=== PATIENT | female | born 1975 | race Caucasian/White ===

== ENCOUNTER 2024-03-09 15:09 | Emergency (ER) | payer MEDICAID, SELFPAY ==
[2024-03-09 15:24] VITALS: BP 128/82; PULSE 95; RESP 18; TEMP 36.9; O2SAT 98; BMI 29.0
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
== END 2024-03-09 15:34 | disposition home or self-care (01) ==
LOC: SERX 15:33
PROVIDERS: Emergency Provider Emergency Medicine; PCP Family Medicine
DX: Z91.018 Allergy to other foods (principal)
CPT/HCPCS: 99281

== ENCOUNTER → 2024-05-15 | Outpatient (CLI) | payer OTHER, MEDICAID, SELFPAY ==
--- NOTE | 2024-05-15 15:33 | XR_ITS ---
Examination: Foot, right, 3 views Technique: AP, oblique, lateral views foot, 3 views Date and time of exam: May 07, 2024 1442 hrs. Indications: Right foot pain months Findings: Mild osteopenia Mild narrowing first metatarsophalangeal joint Old deformity at the base of the proximal phalanx fifth digit No acute fracture Minute plantar posterior bony calcaneal spurs Impression: Mild narrowing first metatarsophalangeal joint Minute plantar posterior bony calcaneal spurs
--- NOTE | 2024-05-15 15:33 | XR_ITS ---
EXAMINATION: Ankle, right 3 views . Technique: Ankle AP, oblique, lateral 3 views Date and time of exam: May 15, 2024 1452 hrs. Indications: Hepatocellular ankle pain months Findings: Mild narrowing tibiotalar joint No fracture Minute plantar posterior bony calcaneal spur Impression: Mild narrowing tibiotalar joint Minute plantar posterior bony calcaneal spurs
== END | disposition home or self-care (01) ==
PROVIDERS: PCP Registered Nurse; Referring Provider Registered Nurse; Visit Provider Registered Nurse
DX: M77.31 Calcaneal spur, right foot (principal); M25.871 Other specified joint disorders, right ankle and foot
CPT/HCPCS: 73610; 73630

== ENCOUNTER → 2024-06-23 | Outpatient (CLI) | payer OTHER, MEDICAID, SELFPAY ==
--- NOTE | 2024-06-23 15:30 | XR_ITS ---
Examination: Thyroid sonography complete Technique: Grayscale sonographic images thyroid lobes are carful analysis Exam date and time: June 23, 2024 1516 hrs. Indications: Choking with eating 2 weeks, throat pain Findings: Right thyroid 3.8 cm No solid nodules Left thyroid 3.2 cm, lower pole nodule 4 x 5 mm Impression: Small lower pole left thyroid nodule Consider fluoroscopically guided standard esophagram follow-up
== END | disposition home or self-care (01) ==
PROVIDERS: PCP Registered Nurse; Referring Provider Registered Nurse; Visit Provider Registered Nurse
DX: E04.1 Nontoxic single thyroid nodule (principal)
CPT/HCPCS: 76536

== ENCOUNTER → 2024-07-01 | Outpatient (CLI) | payer OTHER, MEDICAID, SELFPAY ==
--- NOTE | 2024-07-01 09:30 | XR_ITS ---
Examination: Esophagram standard Upright PA chest single view Upright soft tissue lateral neck single view Fluoroscopy 17 spot fluoroscopic films of the esophagus Exam date and time: July 01, 2024 0934 hours INDICATIONS: Difficulty swallowing beginning 3 weeks ago. FINDINGS: Upright PA chest normal heart size, lungs are clear Soft tissue lateral neck satisfactory alignment cervical vertebral bodies No cervical fracture No cervical disc narrowing Normal epiglottis Patient swallowed thin barium with 17 spot fluoroscopic films of the esophagus obtained Primary peristaltic esophageal waves Mild intermittent gastroesophageal reflux No constricting esophageal lesion No esophageal ulcerations No stricture at the gastroesophageal junction IMPRESSION: Mild intermittent gastroesophageal reflux No stricture at the gastroesophageal junction Fluoroscopy 0.28 minutes 17 spot fluoroscopic films of the esophagus
== END | disposition home or self-care (01) ==
LOC: CDIM 09:24
PROVIDERS: PCP Family Medicine; Referring Provider Registered Nurse; Visit Provider Registered Nurse
DX: K21.9 Gastro-esophageal reflux disease without esophagitis (principal)
CPT/HCPCS: 74220; A4699

== ENCOUNTER → 2024-08-04 | Outpatient (CLI) | payer BC, MEDICAID, SELFPAY ==
--- NOTE | 2024-08-04 | XR_ITS ---
Examination: Lumbar spine 3 views Technique one AP lateral coned lateral lower lumbar spine 3 views Date and time: August 04, 2024 1205 hours Comparison December 16, 2020 INDICATIONS: Low back pain several years. FINDINGS: Adequate alignment lumbar vertebral bodies No lumbar fracture Moderate disc narrowing L5-S1 No spondylolisthesis IMPRESSION: Moderate degenerative disc disease L5-S1
== END | disposition home or self-care (01) ==
PROVIDERS: PCP Family Medicine; Referring Provider Orthopaedic Surgery; Visit Provider Orthopaedic Surgery
DX: M51.379 Other intervertebral disc degeneration, lumbosacral region without mention of lumbar back pain or lower extremity pain (principal)
CPT/HCPCS: 72100

== ENCOUNTER 2025-02-05 14:40 | Emergency (ER) | payer MEDICAID, SELFPAY ==
[2025-02-05 15:11] VITALS: BP 125/81; PULSE 85; RESP 19; TEMP 36.9; O2SAT 98
--- NOTE | 2025-02-05 15:12 | XR_ITS ---
Examination: CT chest, without intravenous contrast. CT abdomen, without intravenous contrast. CT pelvis, without intravenous contrast. 2-D sagittal and coronal reconstructions. 3-D reconstructions. Date and time of exam: February 05, 2025, 1536 hours INDICATIONS: Shortness of breath upper abdominal pain beginning 2 months ago CTDI vol (mgy) 7.94 DLP (MGycm) 583 Technique: Multiple CT images, 3.0 mm slice thickness, obtained chest, abdomen, pelvis, with the high-resolution 64 slice scanner.. Sagittal and coronal 2-D reconstructions are obtained. 3-D reconstructions Low dose protocols were performed. One or more of the following dose reduction techniques were used; automated exposure control, adjustment of the mA and/or KV according to patient size, use of iterative reconstruction technique. Findings: No thoracic aortic aneurysm dilatation Pulmonary artery segments are not enlarged No pneumonia or pulmonary edema No visualized liver or splenic lesion Absent gallbladder No pancreatic or adrenal mass Bilateral 1 to 4 mm renal calculi, no hydronephrosis or ureteral calculi Small lymph nodes in the pericecal region Normal appendix No bowel obstruction IMPRESSION: No acute process in the chest abdomen or pelvis Bilateral nonobstructing renal calculi
--- NOTE | 2025-02-05 15:16 | EDRME_ITS ---
Rapid Medical Screening Exam E Arrival date/time: 02/05/25 14:40 49-year-old female with no known medical history presents to the emergency room with a chief complaint of right-sided rib tenderness and shortness of breath x 3 days I have greeted and performed a focused initial assessment of this patient. A com prehensive ED assessment and evaluation of the patient, analysis of all test results, and completion of the medical decision making process will be conducted by additional ED providers. Chief Complaint: General Adult/Misc Complain Time Seen by Provider: 02/05/25 15:05 Vital signs: Vital Signs Temperature 98.5 F 02/05/25 15:11 Pulse Rate 85 02/05/25 15:11 Respiratory Rate 19 02/05/25 15:11 Blood Pressure 125/81 02/05/25 15:11 Pulse Oximetry (%) 98 02/05/25 15:11 Oxygen Delivery Method Room Air 02/05/25 15:11 Vital signs reviewed by provider: Yes Exam: Clear bilateral lung sounds. Strong and regular rhythm GCS 15 Clinical Impression: Shortness of breath/pneumonia/
[2025-02-05 15:28] VITALS: BMI 28.8
[2025-02-05 15:48] LABS: Basophils # (Auto) 0.0 Thou/mm3 (0.0-0.2); Basophils % (Auto) 1 % (0-2.5); Eosinophils # (Auto) 0.2 Thou/mm3 (0.0-0.5); Eosinophils % (Auto) 2 % (0-10); Hematocrit 41.9 % (36.0-46.0); Hemoglobin 14.2 g/dL (12.0-16.0); Immature Granulocytes Auto 0.02 Thou/mm3 (0.00-0.00); Lymphocytes # (Auto) 2.2 Thou/mm3 (1.0-4.8); Lymphocytes % (Auto) 31 % (10-50); Mean Corpuscular HGB Conc 33.9 g/dl (31.0-37.0); Mean Corpuscular Hemoglobin 28.5 pg (25.0-35.0); Mean Corpuscular Volume 84 fL (80-100); Monocytes # (Auto) 0.6 Thou/mm3 (0.0-0.8); Monocytes % (Auto) 8 % (0-12); Neutrophils # (Auto) 4.0 Thou/mm3 (1.8-7.7); Neutrophils % (Auto) 58 % (37-80); Nucleated Red Blood Cell # 0.00 Thou/mm3 (0.00-0.00); Nucleated Red Blood Cell % 0 /100 WBC (0); Platelet Count 346 Thou/mm3 (140-440); RDW Standard Deviation 38.5 fL (36.4-46.3); Red Blood Count 4.99 Miln/mm3 (4.00-5.20); White Blood Count 7.0 Thou/mm3 (3.6-11.0)
[2025-02-05 15:52] LABS: Collection Type, Urine Clean Catch
[2025-02-05 16:01] LABS: Bilirubin,Urine Negative (Negative); Blood,Urine Trace (Negative); Clarity,Urine Clear (Clear/Hazy); Color,Urine Lt-Yellow (Lt Yel-Yel); Glucose, Urine Negative (Negative); Ketones,Urine Negative (Negative); Leukocyte Esterase,Urine Negative (Negative); Nitrite,Urine Negative (Negative); PH,Urine 6.0 (5.0-7.0); Protein,Urine Negative (Neg - Trace); RBC,Urine 4 /hpf (0-3); Specific Gravity,Urine 1.020 (1.001-1.035); Squamous Epithelial Cell,Urine 4 /hpf (0-5); Urobilinogen,Urine Negative mg/dL (0.0-1.0); WBC,Urine 1 /hpf (0-5)
[2025-02-05 16:10] LABS: Alanine Aminotransferase 23 U/L (10-49); Albumin, Serum 4.8 gm/dL (3.5-5.0); Albumin/Globulin Ratio 1.9 (1.2-2.2); Alkaline Phosphatase 76 U/L (46-116); Anion Gap 8 (7-16); Aspartate Amino Transferase 26 U/L (0-34); BUN/Creatinine Ratio 13 Ratio (12-20); Bilirubin,Total 0.4 mg/dL (0.3-1.2); Blood Urea Nitrogen 8 mg/dL (9-23); Calcium 9.2 mg/dL (8.3-10.6); Calcium (Corrected) 9.2 mg/dL (8.5-10.1); Carbon Dioxide 28.2 mMol/L (20.0-31.0); Chloride 105 mMol/L (98-107); Creatinine (Component) 0.6 mg/dL (0.6-1.3); Estimated Creatinine Clearance 126.0 mL/min (>60); Globulin 2.5 gm/dL (2.3-3.5); Glucose 91 mg/dL (74-106); Lipase 34 U/L (12-53); Osmolality,Calculated 279 (275-295); Potassium 3.7 mMol/L (3.4-5.1); Sodium 141 mMol/L (136-145); Total Protein 7.3 gm/dL (5.7-8.2); eGFR > 60 See Note
[2025-02-05 16:16] LABS: HCG Qualitative,Urine Negative
--- NOTE | 2025-02-05 16:45 | PRELIM_ITS ---
CT scan of the chest, abdomen, and pelvis without intravenous contrast (axial sections with sagittal and coronal reformats): February 05, 2025 at 1536 hours Clinical History: Shortness of breath, right upper quadrant pain. Comparison: No prior study is available for comparison at the time of interpretation. Findings: There is no focal consolidation/infiltrates or pleural effusion. The thoracic aorta is unremarkable without aneurysm. There is no mediastinal mass or significant lymphadenopathy. There is no pericardial effusion. The trachea and esophagus are unremarkable. The gallbladder is surgically absent. No infla mmatory changes are seen in the gallbladder fossa. The liver, spleen, both adrenals, and pancreas are unremarkable on this non-contrast study. There are non-obstructing bilateral renal calculi, the largest measuring 4 mm in the lower pole of the right kidney. There is no ureteric calculus or hydrourete ronephrosis. There is no bowel obstruction. Small bowel loops are fluid-filled, non-specific. The appendix is within normal limits (on axial image [id number]). A moderate amount of fecal material is seen in the colon. The uterus is surgically absent. There is no adnexal mass. Phleboliths are seen in the pelvis. There is no free fluid or free air. The aorta is unremarkable on this non-contrast study. Osseous structures are unremarkable. Impression: 1. No focal pneumonic consolidation, pleural effusion, or significant lymphadenopathy. 2. Cholecystectomy. 3. Non-obstructing bilateral renal calculi. 4. No bowel obstruction. 5. Other findings are as described above. Report Electronically Signed By: Kylee Nicholson 02/05/2025 4:44:24 PM [EST]
--- NOTE | 2025-02-05 18:40 | EDNOTE_ITS ---
ED Chest Pain RME/HPI General Chief Complaint: General Adult/Misc Complain Stated Complaint: R RIB PAIN Time Seen by Provider: 02/05/25 15:05 Arrival date/time: 02/05/25 14:40 RME / HPI RME / HPI narrative: 02/05/25 14:40 49-year-old female with no known medical history presents to the emergency room with a chief complaint of right-sided rib tenderness and shortness of breath x 3 days I have greeted and performed a focused initial assessment of this patient. A comprehensive ED assessment and evaluation of the patient, analysis of all test results, and completion of the medical decision making process will be conducted by additional ED providers. DR. GUTIERREZ MAIN ED EVALUATION: Patient presents with right lower chest/subcostal pain of several years duration, gradually increasing in intensity with noted pleuritic component. Reports increasing pain with both rotation and flexion of the torso and notes mild shortness of breath. Also reports dyspneic exertion. PMH: Migraine, Sleep Apnea, Kidney Stones, Depression, Anxiety, and Post Traumatic Stress Disorder, IBS PSH: Hysterectomy, Cholecystectomy Allergies: Codeine, Hydromorphone, Lidocaine, Morphine Social: Occasional Alcohol Consumption Exam: Clear bilateral lung sounds. Strong and regular rhythm GCS 15 Impression: Shortness of breath/pneumonia/ Related Data Home Medications ?Medication ?Instructions ?Recorded ?Confirmed sertraline 100 mg tablet (Zoloft) 100 mg PO BID 01/08/22 hydroxyzine HCl 25 mg tablet 25 mg PO TID PRN Anxiety 07/18/18 01/08/22 propranolol 20 mg tablet 20 mg PO .PRN 05/09/2101/08 Previous Rx's ?Medication ?Instructions ?Recorded [id number] 1 cap PO TID PRN matthias n #30 caps 06/02/22 50 mg-300 mg-40 mg capsule (Fioricet) cyclobenzaprine 10 mg tablet 10 mg PO BID 7 days #14 t abs 02/05/25 gabapentin 100 mg capsule 100 mg PO BID 7 days #14 cap s 02/05/25 prednisone 20 mg tablet 40 mg PO QDAY 5 days #10 tab s 02/05/25 Allergies Allergy/AdvReac Type Severity Reaction Status Date / Time codeine Allergy Severe Difficulty Verified 02/05/25 14:42 Breathing hydromorphone Allergy Severe Anaphylaxis Verified 02/05/25 14:42 lidocaine Allergy Severe JERKING,TWI Verified 02/05/25 14:42 TCHING anjali Allergy Severe Swelling Verified 02/05/25 14:42 of Lip/Tongue/Throat morphine Allergy Severe Difficulty Verified 02/05/25 14:42 Breathing papaya Allergy Severe Swelling Verified 02/05/25 14:42 of Lip/Tongue/Throat pineapple Allergy Severe Swelling Verified 02/05/25 14:42 of Lip/Tongue/Throat MACHA Allergy Severe Swelling Uncoded 02/05/25 14:42 of Lip/Tongue/Throat tropical fruit Allergy Severe Swelling Uncoded 02/05/25 14:42 of Lip/Tongue/Throat Review of Systems Review of Systems Systems Reviewed: All systems reviewed, normal except as documented Past Medical History Past Medical History NEUROLOGIC: Positive Migraine RESPIRATORY: Positive Sleep Apnea (NO MEDS) GENITOURINARY: Positive Kidney Stones PSYCHO/SOCIAL: Positive Depression, Anxiety and Post Traumatic Stress Disorder OTHER HISTORY: Positive Hospitalization, Anesthesia Reactions ( DIFFICULTY W AKING UP FROM GENERAL SX ) and Chicken Pox Family History FAMILY HISTORY: Positive Family Cancer Surgical History SURGICAL: Positive Hysterectomy ED Exam Narrative Physical exam: GEN. APPEARANCE: The patient is alert awake oriented X-3 under no distress, lying down comfortably, does not look ill/toxic. Patient has good eye contact. Patient is cooperative. VITALS: All vitals were reviewed and the pulse ox is 98%, which is normal according to my interpretation HEENT: Normocephalic, atraumatic and nontender. Pupils are equal and reactive. Oral mucosa is moist. NECK: Supple, nontender, no meningismus, no JVD. There is no thyromegaly and no lymphadenopathy. CHEST: Chest wall tenderness of left lower anterior subcostal region radiating to the mid-axillary line, pain tends to worsen with rotation and flexion of the torso, no deformity and no crepitus. CARDIOVASCULAR: Heart regular rhythm, no murmur or gallop rub or extra beats. LUNGS: Clear to auscultation bilaterally with symmetrical chest rise. No laboring tachypnea or wheezing. No intercostal subcostal retraction. No rales and no rhonchi. ABDOMEN: Soft, flat, nontender to palpation, no guarding or rebound tenderness. There are no abnormal masses palpated. No pulsatile masses or bruits. Active and normal bowel sounds. EXTREMITIES: Normal inspection and palpation. No edema. No cyanosis. Patient is able to move all 4 extremities well SKIN: Warm and dry, no rashes noted. MUSCULOSKELETAL: No lumbar or midline bony tenderness. There is no CVA tenderness. No paraspinal muscle spasm or tenderness. NEURO: Cranial nerves II through XII grossly intact. There are no focal neurologic deficits noted. GCS is 15 PSYCHIATRIC: Patient is in normal mood and affect, cooperative. LYMPHATICS: No major lymphadenopathy noted. Course Quality Measures none Orders Category Date Time Status CT chest abdomen pelvis wo Stat Exams 02/05/25 15:12 Taken CBC Stat Lab 02/05/25 15:21 Completed CMP [Comprehensive Metabolic Panel] Stat Lab 02/05/25 15:21 Completed D-Dimer Stat Lab 02/05/25 16:21 Completed HCG Qualitative,Urine Stat Lab 02/05/25 15:43 Completed Lipase Stat Lab 02/05/25 15:21 Completed UA [Urinalysis] Stat Lab 02/05/25 15:43 Completed Urine Culture Stat Lab 02/05/25 15:43 Received Vital Signs Vital signs: Vital Signs Temperature 98.5 F 02/05/25 15:11 Pulse Rate 85 02/05/25 15:11 Respiratory Rate 19 02/05/25 15:11 Blood Pressure 125/81 02/05/25 15:11 Pulse Oximetry (%) 98 02/05/25 15:11 Oxygen Delivery Method Room Air 02/05/25 15:11 Chest Pain MDM Narrative MDM Narrative:: Scribe Attestation: Jocelyn Austin am scribing for and in the presence of Dr. Garza. Provider Notation: Although this document has been carefully reviewed, there may still be some phonetic and other typographical errors. These errors are purely grammatical due to imperfections in the software program and should not be construed in any way to compromise the substance of the patient's medical care during this visit. Patient presents with right lower chest/subcostal pain of several years duration, gradually increasing in intensity with noted pleuritic component. Reports increasing pain with both rotation and flexion of the torso and notes mild shortness of breath. Laboratory markers, including CBC, UA, and serum chemistries, were unremarkable. D-Dimer was also unremarkable. CT scan of the chest without contrast was also performed without acute process. Given repr oducibility, highly suspect musculoskeletal component and will treat Patient data External records reviewed:: [facility] previous records (Reviewed prior ED records from 03/09/24 . Patient was seen for Allergy.) Clinical information provided by:: patient Social determinants that could affect healthcare access:: none Patient has the following chronic illnesses:: Migraine, Sleep Apnea, Kidney Stones, Depression, Anxiety, and Post Traumatic Stress Disorder How is presenting disease/condition affected by chronic disease/condition?: exacerbated by Evaluation data The following diagnostics were reviewed and interpreted by me:: lab results and radiology exam(s) Lab and/or radiology exams considered but not ordered:: None Interpretation Summary: RADIOLOGY Chest/Abdomen/Pelvis CT: Findings: There is no focal consolidation/infiltrates or pleural effusion. The thoracic aorta is unremarkable without aneurysm. There is no mediastinal mass or significant lymphadenopathy. There is no pericardial effusion. The trachea and esophagus are unremarkable. The gallbladder is surgically absent. No inflammatory changes are seen in the gallbladder fossa. The liver, spleen, both adrenals, and pancreas are unremarkable on this non-contrast study. There are non-obstructing bilateral renal calculi, the largest measuring 4 mm in the lower pole of the right kidney. There is no ureteric calculus or hydroureteronephrosis. There is no bowel obstruction. Small bowel loops are fluid-filled, non-specific. The appendix is within normal limits (on axial image [id number]). A moderate amount of fecal material is seen in the colon. The uterus is surgically absent. There is no adnexal mass. Phleboliths are seen in the pelvis. There is no free fluid or free air. The aorta is unremarkable on this non-contrast study. Osseous structures are unremarkable. Impression: 1. No focal pneumonic consolidation, pleural effusion, or significant lymphadenopathy. 2. Cholecystectomy. 3. Non-obstructing bilateral renal calculi. 4. No bowel obstruction. 5. Other findings are as described above. Medications / Prescriptions Medications or Prescriptions considered but not ordered:: None Medication administrations:: See above if any Consultations Consultation(s) initiated? (list below): No Diagnosis Chest Pain Differential Diagnosis: pneumothorax, stable angina, unstable angina pectoris, atypical chest pain, st elevation myocardial infarction, costochondritis, chest pain and biliary colic Most likely diagnosis given after review of the tests above:: Chest wall pain Admission Indicated Admission indicated?: not indicated Explain why admission is indicated or not indicated:: Patient does not meet admission criteria Admission Request Was there a request for admission?: No Disposition Plan Disposition Plan: Discharge Discharge Attestation Discharge Attestation: The patient and all family members were given an opportunity to ask questions and understood the discharge instructions. Discharge instructions specifically effects, indications for sooner follow up or return to the emergency department, and the expected course of current diagnosis. Patient condition: Stable Critical Care Time Critical Care Time Critical Care Time: No Discharge Plan Plan Patient Disposition: HOME (Self Care) Discharge Disposition comment: Stable Prescriptions/Referrals Prescriptions/Med Rec: No Action sertraline [Zoloft] 100 mg tablet 100 mg PO BID hydroxyzine HCl 25 mg tablet 25 mg PO TID PRN (Reason: Anxiety) propranolol 20 mg tablet 20 mg PO .PRN [id number] [Fioricet] 50-300-40 mg capsule 1 cap PO TID PRN (Reason: pain) Qty: 30 0RF Referrals: No Primary/Family,Physician [Primary Care Provider] - In 1 week Problem List Clinical Impression: Chest wall pain Impression comment: Chest wall pain Patient/Caregiver Discharge Instructions Discharge Activity: activity as tolerated Other Activity Instructions:: Avoid heavy lifting pulling etc. Education Materials: ED Chest Pain, Noncardiac Additional Instructions: Medications as directed. Ice compress elevate warm moist heat. Follow-up with primary care doctor in 1 to 2 weeks for further evaluation. Print Language: Croatian Stand Alone Forms: [employer] Award Info., Patient Portal Info Letter
[2025-02-05 18:52] LABS: D-Dimer < 250 ng/mL (<600)
[2025-02-05 19:26] VITALS: BP 119/82; PULSE 78; RESP 16; TEMP 36.7; O2SAT 100
== END 2025-02-05 19:27 | disposition home or self-care (01) ==
PROVIDERS: Nurse Practitioner Family; Emergency Provider Emergency Medicine
DX: J18.9 Pneumonia, unspecified organism (principal)
CPT/HCPCS: 36415; 71250; 74176; 80053; 81001; 81025; 83690; 85025; 85379; 87086; 99283